=== PATIENT | female | born 1980 ===

== ENCOUNTER 2017-10-24 08:01 | Inpatient (IN) | payer OTHER ==
[~2017-10-24] VITALS: Ht 172.7 cm; Wt 92.5 kg
[2017-10-24] MEDS ORDERED: ZANTAC150 M3 PO (09:01)
[2017-10-24] MEDS ORDERED: OBSTETRIX EC C1 EACH PO (09:01)
== END 2017-10-26 12:21 | DRG 775 ==
LOC: LDR 08:01 → OB/GYN 08:01
PROC: 10E0XZZ Delivery of Products of Conception, External Approach (ICD-10-PCS; principal; 2017-10-24)
PROC: 0HQ9XZZ Repair Perineum Skin, External Approach (ICD-10-PCS; 2017-10-24)
PROC: 3E033VJ Introduction of Other Hormone into Peripheral Vein, Percutaneous Approach (ICD-10-PCS; 2017-10-24)
PROC: 4A1HXCZ Monitoring of Products of Conception, Cardiac Rate, External Approach (ICD-10-PCS; 2017-10-24)
DX: O70.0 First degree perineal laceration during delivery (principal); O99.824 Streptococcus B carrier state complicating childbirth; Z3A.38 38 weeks gestation of pregnancy; Z37.0 Single live birth